=== PATIENT | female | born 1965 | race Caucasian/White ===

== ENCOUNTER 2017-05-06 23:00 | Emergency (ER) | payer MEDICAID ==
[~2017-05-06] VITALS: Ht 170.2 cm; Wt 62.0 kg
[2017-05-06] MEDS ORDERED: ZIPRASIDONE 20 MG INJ IM ONE ×2 (23:30→23:45)
[2017-05-06 23:39] LABS: HEMATOCRIT 44.1 % (34.6-47.8); WHITE BLOOD COUNT 8.9 x10^3/uL (3.4-10)
[2017-05-06 23:50] LABS: BLOOD UREA NITROGEN 10 mg/dL (7-18)
[2017-05-07 00:02] LABS: ACETAMINOPHEN < 2 mcg/mL (10-30)
[2017-05-07 06:12] VITALS: BP 112/79
== END 2017-05-07 11:00 | disposition home or self-care (01) ==
LOC: ED 23:59
DX: F41.1 Generalized anxiety disorder (principal); F10.220 Alcohol dependence with intoxication, uncomplicated; F32.9 Major depressive disorder, single episode, unspecified; G89.29 Other chronic pain
CPT/HCPCS: 36415; 80048; 80307; 80329; 82040; 85025; 96372; 99284; J3486; G0480

== ENCOUNTER 2017-12-16 17:27 | Emergency (ER) | payer MEDICAID ==
[~2017-12-16] VITALS: Ht 165.1 cm; Wt 55.0 kg
[2017-12-16 17:47] VITALS: BP 109/76
== END 2017-12-16 18:57 | disposition home or self-care (01) ==
LOC: ED 17:45
DX: F10.120 Alcohol abuse with intoxication, uncomplicated (principal); M54.9 Dorsalgia, unspecified; G89.29 Other chronic pain; F32.9 Major depressive disorder, single episode, unspecified
CPT/HCPCS: 99283

== ENCOUNTER 2018-03-03 13:49 | Emergency (ER) | payer MEDICAID ==
[~2018-03-03] VITALS: Ht 165.1 cm; Wt 53.0 kg
[2018-03-03 14:49] LABS: BASOPHILS # (AUTO) 0.04 x10^3/uL (0-0.1); BASOPHILS % (AUTO) 1 % (0-1); EOSINOPHILS # (AUTO) 0.06 x10^3/uL (0-0.4); EOSINOPHILS % (AUTO) 1 % (1-7); LYMPHOCYTES % (AUTO) 37 % (22-44); MD NO; MEAN CORPUSCULAR HEMOGLOBIN 31.2 pg (27.0-34.8); MEAN CORPUSCULAR HGB CONC 34.1 g/dL (32.4-35.8); MEAN CORPUSCULAR VOLUME 91.5 fL (80-100); MEAN PLATELET VOLUME 7.4 fL (7.4-10.4); MONOCYTES # (AUTO) 0.32 x10^3/uL (0.2-0.8); MONOCYTES % (AUTO) 4 % (2-9); NEUTROPHILS # (AUTO) 5.03 x10^3/uL (1.8-6.8); NEUTROPHILS % (AUTO) 58 % (42-75); PLATELET COUNT 293 x10^3/uL (130-400); RED BLOOD COUNT 4.99 x10^6/uL (3.82-5.3)
[2018-03-03 14:52] LABS: ALANINE AMINOTRANSFERASE 41 U/L (12-78); ALBUMIN 3.9 g/dL (3.4-5.0); ANION GAP 11 mmol/L (5-15); CALCIUM 8.6 mg/dL (8.5-10.1); CHLORIDE 104 mmol/L (98-107); CREATININE 0.58 mg/dL (0.55-1.02); SALICYLATE LEVEL 3.3 mg/dL (2.8-20.0)
[2018-03-03 14:54] LABS: ALKALINE PHOSPHATASE 91 U/L (45-117); BILIRUBIN,TOTAL 0.4 mg/dL (0.2-1.0); TOTAL PROTEIN 8.2 g/dL (6.4-8.2)
[2018-03-03 15:10] LABS: ACETAMINOPHEN < 2 mcg/mL (10-30)
[2018-03-03 21:29] LABS: AMPHETAMINE SCREEN, URINE Negative (Negative); BARBITURATE SCREEN, URINE Negative (Negative); BENZODIAZEPINE SCREEN, URINE Negative (Negative); CANNABINOID SCREEN, URINE Negative (Negative); COCAINE SCREEN, URINE Negative (Negative); METHADONE SCREEN, URINE Negative (Negative); OPIATE SCREEN, URINE Negative (Negative)
[2018-03-04 00:10] VITALS: BP 114/86
[2018-03-04] MEDS ORDERED: ONDANSETRON ODT 4 MG PO ONE (00:30)
[2018-03-04] MEDS ORDERED: LORazepam 2 MG/ML, 1ML IM ONE (00:30)
[2018-03-04] MEDS ORDERED: ONDANSETRON ODT 4 MG ONE (00:34)
[2018-03-04] MEDS ORDERED: LORazepam 2 MG/ML, 1ML ONE (00:34)
== END 2018-03-04 01:03 | disposition home or self-care (01) ==
LOC: ED 21:08
DX: F33.9 Major depressive disorder, recurrent, unspecified (principal); F10.229 Alcohol dependence with intoxication, unspecified; F41.1 Generalized anxiety disorder; F17.200 Nicotine dependence, unspecified, uncomplicated; Z90.89 Acquired absence of other organs; Z79.899 Other long term (current) drug therapy
CPT/HCPCS: 36415; 80053; 80307; 80329; 85025; 96372; 99284; J2060; Q0162; G0480

== ENCOUNTER 2018-03-08 22:36 | Inpatient (IN) | payer MEDICAID ==
[~2018-03-08] VITALS: Ht 165.1 cm; Wt 56.1 kg
[2018-03-08 23:29] LABS: BASOPHILS # (AUTO) 0.05 x10^3/uL (0-0.1); BASOPHILS % (AUTO) 1 % (0-1); EOSINOPHILS # (AUTO) 0.08 x10^3/uL (0-0.4); EOSINOPHILS % (AUTO) 1 % (1-7); LYMPHOCYTES # (AUTO) 2.73 x10^3/uL (1-3.4); LYMPHOCYTES % (AUTO) 38 % (22-44); MD NO; MEAN CORPUSCULAR HEMOGLOBIN 31.3 pg (27.0-34.8); MEAN CORPUSCULAR VOLUME 91.9 fL (80-100); MEAN PLATELET VOLUME 8.2 fL (7.4-10.4); MONOCYTES # (AUTO) 0.47 x10^3/uL (0.2-0.8); MONOCYTES % (AUTO) 7 % (2-9); NEUTROPHILS # (AUTO) 3.89 x10^3/uL (1.8-6.8); NEUTROPHILS % (AUTO) 54 % (42-75); PLATELET COUNT 109 x10^3/uL (130-400); RED BLOOD COUNT 5.01 x10^6/uL (3.82-5.3); RED CELL DISTRIBUTION WIDTH 14.1 % (9.6-15.2)
[2018-03-08] MEDS ORDERED: SODIUM CHLORIDE 0.9% 1,000ML IVBOLUS ONE (23:30)
[2018-03-08] MEDS ORDERED: THIAMINE 100MG TABLET PO ONE (23:30)
[2018-03-08] MEDS ORDERED: ONDANSETRON 2MG/ML, 2ML IVPush ONE (23:30)
[2018-03-08] MEDS ORDERED: LORazepam 2 MG/ML, 1ML IVPush PRN (23:30)
[2018-03-08 23:32] LABS: ANION GAP 11 mmol/L (5-15); CALCIUM 9.1 mg/dL (8.5-10.1); CHLORIDE 106 mmol/L (98-107); CREATININE 0.71 mg/dL (0.55-1.02)
[2018-03-08 23:33] LABS: ALANINE AMINOTRANSFERASE 43 U/L (12-78); ALBUMIN 3.9 g/dL (3.4-5.0)
[2018-03-08 23:35] LABS: ALKALINE PHOSPHATASE 95 U/L (45-117); BILIRUBIN,TOTAL 0.3 mg/dL (0.2-1.0); TOTAL PROTEIN 8.4 g/dL (6.4-8.2)
[2018-03-09] MEDS ORDERED: ONDANSETRON 2MG/ML, 2ML ONE (00:02)
[2018-03-09] MEDS ORDERED: LORazepam 2 MG/ML, 1ML ONE (00:02)
[2018-03-09] MEDS ORDERED: THIAMINE 100MG TABLET ONE (00:02)
[2018-03-09] MEDS ORDERED: ACETAMINOPHEN 325 MG TABLET PO PRN (01:00)
[2018-03-09] MEDS ORDERED: THIAMINE 100 MG, MVI ADULT 10 ML, FOLIC ACID 1 MG in D5%-0.9% NACL 1,000 ML IV SCH (01:00)
[2018-03-09] MEDS ORDERED: ONDANSETRON 2MG/ML, 2ML IVPush PRN (01:00)
[2018-03-09] MEDS ORDERED: LORazepam 1MG TABLET PO PRN (01:00)
[2018-03-09 01:30] VITALS: BP 84/55
[2018-03-09] MEDS ORDERED: SODIUM CHLORIDE 0.9% 1,000ML IVBOLUS ONE (02:00)
[2018-03-09] MEDS ORDERED: FLUMAZENIL 0.1 MG/1 ML, 5ML IVPush ONE (02:00)
[2018-03-09] MEDS: D5%-0.9% NACL 1,000 ML IV SCH ×2 (02:06→19:30)
[2018-03-09 02:40] VITALS: BP 97/70
[2018-03-09] MEDS: ENOXAPARIN 40 MG/0.4 ML SQ SCH (02:46)
[2018-03-09 05:34] LABS: ANION GAP 8 mmol/L (5-15); CALCIUM 6.8 mg/dL (8.5-10.1); CHLORIDE 114 mmol/L (98-107)
[2018-03-09 05:36] LABS: CREATININE 0.45 mg/dL (0.55-1.02)
[2018-03-09] MEDS ORDERED: POTASSIUM CHLORIDE 40 MEQ in SODIUM CHLORIDE 0.9% 500 ML IV ONE (06:30)
[2018-03-09] MEDS ORDERED: MAGNESIUM SULFATE PMX 2GM/50ML 50 ML IV ONE (06:30)
[2018-03-09 07:32] VITALS: BP 103/66
[2018-03-09] MEDS: POTASSIUM CHLORIDE 20 MEQ TAB.ER.PRT PO SCH ×2 (08:00→17:15)
[2018-03-09] MEDS ORDERED: LORazepam 0.5MG TABLET ONE (09:59)
[2018-03-09] MEDS: LORazepam 0.5MG TABLET PO PRN ×3 (10:06→19:47)
[2018-03-09 14:21] VITALS: BP 117/75
[2018-03-09] MEDS: BEER 12 OZ CAN PO SCH ×2 (17:07→17:16)
[2018-03-09 19:15] VITALS: BP 126/75
[2018-03-10] MEDS: ENOXAPARIN 40 MG/0.4 ML SQ SCH (00:57)
[2018-03-10] MEDS: LORazepam 0.5MG TABLET PO PRN ×5 (00:57→20:43)
[2018-03-10 01:40] VITALS: BP 115/73
[2018-03-10] MEDS: D5%-0.9% NACL 1,000 ML IV SCH ×2 (01:42→08:17)
[2018-03-10 05:48] LABS: ALBUMIN 2.6 g/dL (3.4-5.0); ANION GAP 6 mmol/L (5-15); CALCIUM 7.4 mg/dL (8.5-10.1); CHLORIDE 111 mmol/L (98-107); CREATININE 0.43 mg/dL (0.55-1.02)
[2018-03-10 07:10] VITALS: BP 119/86
[2018-03-10] MEDS: BEER 12 OZ CAN PO SCH (08:00)
[2018-03-10] MEDS ORDERED: THIAMINE 100 MG/ML, 2ML IM SCH (09:00)
[2018-03-10] MEDS ORDERED: POTASSIUM PHOSPHATE 22 MEQ in SODIUM CHLORIDE 0.9% 500 ML IV ONE (09:00)
[2018-03-10] MEDS ORDERED: MAGNESIUM SULFATE PMX 2GM/50ML 50 ML IV ONE (09:00)
[2018-03-10] MEDS ORDERED: POTASSIUM CHLORIDE 20 MEQ TAB.ER.PRT PO ONE (09:00)
[2018-03-10] MEDS: FOLIC ACID 1 MG TABLET PO SCH (11:36)
[2018-03-10] MEDS: MULTIVITAMIN 1 TABLET PO SCH (11:36)
[2018-03-10 12:45] VITALS: BP 126/81
[2018-03-10 20:18] VITALS: BP 117/75
[2018-03-11] MEDS: ENOXAPARIN 40 MG/0.4 ML SQ SCH (01:00)
[2018-03-11 01:05] VITALS: BP 129/81
[2018-03-11 06:05] LABS: ALBUMIN 2.8 g/dL (3.4-5.0); CALCIUM 7.8 mg/dL (8.5-10.1); CHLORIDE 109 mmol/L (98-107)
[2018-03-11 06:08] LABS: ANION GAP 10 mmol/L (5-15); CREATININE 0.43 mg/dL (0.55-1.02)
[2018-03-11 06:48] VITALS: BP 133/81
[2018-03-11] MEDS: LORazepam 0.5MG TABLET PO PRN (08:30)
[2018-03-11] MEDS: MULTIVITAMIN 1 TABLET PO SCH (08:30)
[2018-03-11] MEDS: FOLIC ACID 1 MG TABLET PO SCH (08:30)
[2018-03-11] MEDS ORDERED: FOLI-17 PO (08:49)
[2018-03-11] MEDS ORDERED: THIA100T6 PO (08:49)
[2018-03-11] MEDS ORDERED: MULT1TAB60 PO (08:49)
[2018-03-11] MEDS ORDERED: THIAMINE 100MG TABLET PO SCH (09:00)
[2018-03-11] MEDS ORDERED: POTASSIUM CHLORIDE 20 MEQ TAB.ER.PRT PO SCH (10:00)
== END 2018-03-11 11:10 | disposition home or self-care (01) | DRG 440 ==
LOC: ED 03-09 00:19 → 3NE 03-09 00:24 → SUATTDRO 03-09 00:38 → DCLOUNGE 03-11 10:55
PROVIDERS: ADMIT Hospitalist; ATTEND Hospitalist
DX: K85.20 Alcohol induced acute pancreatitis without necrosis or infection (principal); E83.42 Hypomagnesemia; E87.6 Hypokalemia; F10.220 Alcohol dependence with intoxication, uncomplicated; F17.200 Nicotine dependence, unspecified, uncomplicated; F32.9 Major depressive disorder, single episode, unspecified; F41.1 Generalized anxiety disorder; G89.29 Other chronic pain; Z90.89 Acquired absence of other organs
CPT/HCPCS: 36415; 99285; J7042; 80048; 80053; 80307; 82040; 82962; 83690; 83735; 84100; 85025; 93005; 96374; 96375; J1650; J2405; J3411; J3480; J2060; J3475; J7030; J7040

== ENCOUNTER 2018-05-20 20:43 | Emergency (ER) | payer MEDICAID ==
[~2018-05-20] VITALS: Ht 165.1 cm; Wt 55.0 kg
[~2018-05-20 20:43] MED LIST: FOLI-17 PO; MULT1TAB60 PO; THIA100T67 PO
[2018-05-20] MEDS ORDERED: LORazepam 1MG TABLET PO ONE (21:00)
[2018-05-20] MEDS ORDERED: LORazepam 1MG TABLET ONE (21:15)
[2018-05-20 21:38] VITALS: BP 120/77
== END 2018-05-20 22:24 | disposition home or self-care (01) ==
LOC: ED 21:57
DX: F10.10 Alcohol abuse, uncomplicated (principal); F41.1 Generalized anxiety disorder; F32.9 Major depressive disorder, single episode, unspecified; Z90.89 Acquired absence of other organs; G89.29 Other chronic pain
CPT/HCPCS: 99281; 99282; 99283

== ENCOUNTER 2018-11-28 16:30 | Emergency (ER) | payer MEDICAID ==
[~2018-11-28] VITALS: Ht 170.2 cm; Wt 55.0 kg
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
[2018-11-28 16:39] VITALS: BP 119/77
--- NOTE | 2018-11-28 17:11 | NUR ---
pt bib remsa for od on unknown number of valium and +etoh. pt states he pcp prescribed 20-10mg
[2018-11-28 17:17] LABS: ALBUMIN 3.8 g/dL (3.4-5.0); ANION GAP 8 mmol/L (5-15); CALCIUM 8.1 mg/dL (8.5-10.1); CHLORIDE 110 mmol/L (98-107); SALICYLATE LEVEL 3.2 mg/dL (2.8-20.0)
[2018-11-28 17:20] LABS: ALANINE AMINOTRANSFERASE 44 U/L (12-78); ALKALINE PHOSPHATASE 63 U/L (45-117); BILIRUBIN,TOTAL 0.4 mg/dL (0.2-1.0); TOTAL PROTEIN 7.3 g/dL (6.4-8.2)
--- NOTE | 2018-11-28 17:27 | NUR ---
pt bib remsa for od on unknown number of valium and +etoh. pt states he pcp prescribed 20-10mg valium
[2018-11-28 17:28] LABS: ACETAMINOPHEN < 2 mcg/mL (10-30)
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
[2018-11-28 17:30] LABS: MEAN CORPUSCULAR HEMOGLOBIN 30.4 pg (27.0-34.8); MEAN CORPUSCULAR HGB CONC 34.1 g/dL (32.4-35.8); MEAN CORPUSCULAR VOLUME 89.2 fL (80-100); MEAN PLATELET VOLUME 8.4 fL (7.4-10.4); PLATELET COUNT 89 x10^3/uL (130-400); RED BLOOD COUNT 4.27 x10^6/uL (3.82-5.3); RED CELL DISTRIBUTION WIDTH 12.7 % (9.6-15.2)
[2018-11-28 17:32] LABS: BASOPHILS # (AUTO) 0.04 x10^3/uL (0-0.1); BASOPHILS % (AUTO) 1 % (0-1); EOSINOPHILS # (AUTO) 0.08 x10^3/uL (0-0.4); EOSINOPHILS % (AUTO) 1 % (1-7); LYMPHOCYTES # (AUTO) 2.63 x10^3/uL (1-3.4); LYMPHOCYTES % (AUTO) 43 % (22-44); MD SCAN; MONOCYTES # (AUTO) 0.29 x10^3/uL (0.2-0.8); MONOCYTES % (AUTO) 5 % (2-9); NEUTROPHILS # (AUTO) 3.02 x10^3/uL (1.8-6.8); NEUTROPHILS % (AUTO) 50 % (42-75)
--- NOTE | 2018-11-28 18:01 | NUR ---
rdp present for dc
== END 2018-11-28 18:13 | disposition home or self-care (01) ==
LOC: ED 16:56
DX: F10.221 Alcohol dependence with intoxication delirium (principal); F32.9 Major depressive disorder, single episode, unspecified; G89.29 Other chronic pain; Z90.89 Acquired absence of other organs
CPT/HCPCS: 36415; 80053; 80307; 80329; 85025; 93005; 99284; G0480

== ENCOUNTER 2020-02-13 16:01 | Emergency (ER) | payer MEDICAID ==
[~2020-02-13] VITALS: Ht 165.1 cm; Wt 54.5 kg
[~2020-02-13 16:01] MED LIST changes: +MULT-449 PO; -MULT1TAB60 PO
[2020-02-13 16:12] VITALS: BP 103/67
== END 2020-02-13 16:52 | disposition home or self-care (01) ==
LOC: ED 16:45
DX: B86 Scabies (principal); F17.200 Nicotine dependence, unspecified, uncomplicated
CPT/HCPCS: 99283

== ENCOUNTER 2020-07-19 17:56 | Emergency (ER) | payer MEDICAID ==
[~2020-07-19] VITALS: Ht 165.1 cm; Wt 55.0 kg
[2020-07-19 18:09] VITALS: BP 113/81
[2020-07-19 18:52] LABS: BASOPHILS % (AUTO) 1 % (0-1); EOSINOPHILS % (AUTO) 1 % (1-7); LYMPHOCYTES % (AUTO) 40 % (22-44); MEAN CORPUSCULAR HEMOGLOBIN 33.5 pg (27.0-34.8); MEAN CORPUSCULAR HGB CONC 34.2 g/dL (32.4-35.8); MEAN PLATELET VOLUME 7.7 fL (7.4-10.4); MONOCYTES % (AUTO) 11 % (2-9); NEUTROPHILS % (AUTO) 48 % (42-75); PLATELET COUNT 92 x10^3/uL (130-400); RED BLOOD COUNT 4.35 x10^6/uL (3.82-5.3); RED CELL DISTRIBUTION WIDTH 13.6 % (9.6-15.2)
[2020-07-19 18:54] LABS: MD NO
[2020-07-19 18:57] LABS: ALANINE AMINOTRANSFERASE 94 U/L (12-78); ALBUMIN 3.6 g/dL (3.4-5.0); ANION GAP 6 mmol/L (5-15); CALCIUM 8.2 mg/dL (8.5-10.1); CHLORIDE 108 mmol/L (98-107); CREATININE 0.59 mg/dL (0.55-1.02)
[2020-07-19 19:02] LABS: ALKALINE PHOSPHATASE 94 U/L (45-117); BILIRUBIN,TOTAL 0.4 mg/dL (0.2-1.0); TOTAL PROTEIN 8.1 g/dL (6.4-8.2); TROPONIN I < 0.015 ng/mL (0.000-0.045)
--- NOTE | 2020-07-19 19:07 | NUR ---
REPORT TO SANTY RIVERO.
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
--- NOTE | 2020-07-19 20:30 | NUR ---
PT REFUSING LAB DRAW, ERP UPDATED
--- NOTE | 2020-07-19 21:09 | NUR ---
PT RESTING ON GURLUIS ENRIQUE NADN AT THIS TIME RESP EVEN AND UNLABORED
--- NOTE | 2020-07-19 23:58 | NUR ---
pt amb to restroom steady gait no assist at this time.
--- NOTE | 2020-07-19 23:59 | NUR ---
PT REQ RX FOR VALIUM AT THIS TIME, PT EDUCATED THAT SHE NEEDS TO SEE PRIMARY CARE FOR THOSE TYPES OF MEDS
--- NOTE | 2020-07-19 23:59 | NUR ---
Patient/Caregiver given discharge instructions and they have confirmed that they understand the instructions. Patient ambulatory with steady gait.
== END 2020-07-20 00:01 | disposition home or self-care (01) ==
LOC: ED 18:43
DX: F10.220 Alcohol dependence with intoxication, uncomplicated (principal); R07.89 Other chest pain; F32.9 Major depressive disorder, single episode, unspecified; G89.29 Other chronic pain; Z90.89 Acquired absence of other organs; Y90.0 Blood alcohol level of less than 20 mg/100 ml
CPT/HCPCS: 36415; 80053; 83735; 84484; 85025; 93005; 99284

== ENCOUNTER 2020-07-22 14:38 | Emergency (ER) | payer MEDICAID ==
[~2020-07-22] VITALS: Ht 165.1 cm; Wt 52.5 kg
--- NOTE | 2020-07-22 16:53 | NUR ---
PT PROVIDED WITH MEAL TRAY. PT DENIES FURTHER NEEDS AT THIS TIME
[2020-07-22 19:38] VITALS: BP 97/69
--- NOTE | 2020-07-22 19:39 | NUR ---
Patient ambulated with steady gait to and from restroom. Alert and oriented. Was given taxi voucher at discharge
== END 2020-07-22 19:46 | disposition home or self-care (01) ==
LOC: ED 18:28
DX: F10.120 Alcohol abuse with intoxication, uncomplicated (principal); F17.200 Nicotine dependence, unspecified, uncomplicated; Z72.9 Problem related to lifestyle, unspecified; Y90.0 Blood alcohol level of less than 20 mg/100 ml
CPT/HCPCS: 99283

== ENCOUNTER 2020-08-28 15:41 | Inpatient (IN) | payer MEDICAID ==
[~2020-08-28] VITALS: Ht 165.1 cm; Wt 54.8 kg
--- NOTE | 2020-08-28 15:58 | NUR ---
BIB EMS, PT +N/V FOR PAST 3 DAYS, DRINKING 1 PINT VOLDKA/DAY, LAST DRINK "ABOUT 5-8 HRS AGO" PT VERBALIZES "I WANT TO GET THROUGH THIS" PT UNDRESSED WITH RN ASSIST 2/2 ANTONINO TREMMORS AND VOMITING. ALL MONITORS IN PLACE, PIV EST AND LABS DRAWN. DR REAL AT BEDSIDE, PT ASSESSMENT, POC DISCUSSED. ORDERS REC'D. PT VSS, CALL LIGHT W/I REACH. BLANKET AND PILLOW FOR COMFORT.
[2020-08-28] MEDS ORDERED: SODIUM CHLORIDE FLUSH 10ML SYR IVF ONE (16:00)
[2020-08-28] MEDS ORDERED: SODIUM CHLORIDE 0.9% 1,000ML IVBOLUS ONE (16:00)
[2020-08-28 16:08] LABS: PH, VENOUS 7.425 pH (7.320-7.420)
[2020-08-28 16:10] LABS: O2 FLOW ROOM AIR L/min
[2020-08-28 16:13] LABS: BASOPHILS % (AUTO) 1 % (0-1); EOSINOPHILS % (AUTO) 0 % (1-7); LYMPHOCYTES % (AUTO) 33 % (22-44); MEAN CORPUSCULAR HEMOGLOBIN 34.3 pg (27.0-34.8); MEAN CORPUSCULAR HGB CONC 34.6 g/dL (32.4-35.8); MEAN PLATELET VOLUME 8.6 fL (7.4-10.4); MONOCYTES % (AUTO) 7 % (2-9); NEUTROPHILS % (AUTO) 59 % (42-75); PLATELET COUNT 115 x10^3/uL (130-400); RED BLOOD COUNT 4.23 x10^6/uL (3.82-5.3); RED CELL DISTRIBUTION WIDTH 13.8 % (9.6-15.2)
[2020-08-28 16:14] LABS: MD NO
[2020-08-28 16:20] LABS: ALANINE AMINOTRANSFERASE 184 U/L (12-78); ANION GAP 17 mmol/L (5-15); CALCIUM 9.1 mg/dL (8.5-10.1); CHLORIDE 99 mmol/L (98-107); CREATININE 1.14 mg/dL (0.55-1.02)
[2020-08-28] MEDS ORDERED: ONDANSETRON 2MG/ML, 2ML ONE (16:21)
[2020-08-28] MEDS ORDERED: LORazepam 2 MG/ML, 1ML ONE ×4 (16:21→21:37)
[2020-08-28 16:22] LABS: ALKALINE PHOSPHATASE 139 U/L (45-117); BILIRUBIN,TOTAL 1.8 mg/dL (0.2-1.0)
[2020-08-28] MEDS: LORazepam 2 MG/ML, 1ML IVPush PRN ×3 (16:22→18:09)
[2020-08-28] MEDS ORDERED: ONDANSETRON 2MG/ML, 2ML IVPush ONE (16:30)
[2020-08-28] MEDS ORDERED: MAGNESIUM SULFATE 1 GM, THIAMINE 100 MG, FOLIC ACID 1 MG in SODIUM CHLORIDE 0.9% 1,000 ML IV ONE (16:30)
[2020-08-28] MEDS ORDERED: POTASSIUM CHLORIDE 20 MEQ TAB.ER.PRT ONE (18:06)
[2020-08-28] MEDS: POTASSIUM CHLORIDE 10% 40 MEQ/30 ML UDC PO ONE ×2 (18:10→19:23)
[2020-08-28] MEDS ORDERED: ONDANSETRON 2MG/ML, 2ML IVPush PRN (18:30)
[2020-08-28] MEDS ORDERED: SODIUM CHLORIDE 0.9% 1,000 ML IV SCH (18:30)
[2020-08-28] MEDS ORDERED: LABETALOL 5MG/ML, 20ML IVPush PRN (18:30)
[2020-08-28] MEDS ORDERED: DOCUSATE 100 MG CAPSULE PO PRN (18:30)
[2020-08-28] MEDS ORDERED: POTASSIUM CHLORIDE 20 MEQ PACKET PO ONE (18:30)
[2020-08-28] MEDS ORDERED: LORazepam 2 MG/ML, 1ML IV PRN ×3 (18:30)
[2020-08-28] MEDS ORDERED: POTASSIUM CHLORIDE 20 MEQ PACKET ONE (19:13)
--- NOTE | 2020-08-28 20:20 | NUR ---
PT AMBULATED TO BR WITH CONTACT ASSIST. PT BTB ON HOSPITAL BED. FOOD TRAY PROVIDED.
--- NOTE | 2020-08-28 21:00 | NUR ---
REPORT FROM JOSEFA CHI. FIRST CONTACT WITH PT WHO IS ENJOYING DINNER. NAD NOTED. PT REPROTS 'MILD HEADACHE' AND 'SHAKING ON THE INSIDE'. CURRENT CIWA 6, PT TO BE MEDICATED PER ORDERS. BP/SPO2/ECG MONITORING IN PLACE. NSR/SINUS TACH ON MONITOR. AWAITING ADMIT
[2020-08-28] MEDS: LORazepam 2 MG/ML, 1ML IV PRN (21:44)
--- NOTE | 2020-08-29 00:14 | NUR ---
REPORT TO JOSEFA REILLY
[2020-08-29 01:05] VITALS: BP 127/78
[2020-08-29] MEDS: LORazepam 2 MG/ML, 1ML IV PRN ×4 (01:18→23:31)
[2020-08-29 06:07] LABS: BASOPHILS % (AUTO) 1 % (0-1); EOSINOPHILS % (AUTO) 1 % (1-7); LYMPHOCYTES % (AUTO) 27 % (22-44); MEAN CORPUSCULAR HEMOGLOBIN 34.7 pg (27.0-34.8); MEAN CORPUSCULAR HGB CONC 35.2 g/dL (32.4-35.8); MONOCYTES % (AUTO) 6 % (2-9); NEUTROPHILS % (AUTO) 64 % (42-75); PLATELET COUNT 60 x10^3/uL (130-400); RED BLOOD COUNT 3.27 x10^6/uL (3.82-5.3); RED CELL DISTRIBUTION WIDTH 13.7 % (9.6-15.2)
[2020-08-29 06:27] LABS: CHLORIDE 104 mmol/L (98-107)
[2020-08-29 06:34] LABS: MD NO
[2020-08-29 07:12] VITALS: BP 122/83
[2020-08-29 08:16] LABS: ALANINE AMINOTRANSFERASE 180 U/L (12-78); ALBUMIN 2.9 g/dL (3.4-5.0); ALKALINE PHOSPHATASE 110 U/L (45-117); ANION GAP 6 mmol/L (5-15); BILIRUBIN,TOTAL 2.5 mg/dL (0.2-1.0); CALCIUM 7.9 mg/dL (8.5-10.1); CREATININE 0.54 mg/dL (0.55-1.02); TOTAL PROTEIN 6.4 g/dL (6.4-8.2)
[2020-08-29] MEDS ORDERED: POTASSIUM CHLORIDE 20 MEQ, MAGNESIUM SULFATE 1 GM, THIAMINE 200 MG, FOLIC ACID 1 MG in ... IV SCH (09:00)
[2020-08-29] MEDS ORDERED: NICOTINE 14MG/24 HR PATCH.TD24 TD SCH (09:00)
[2020-08-29] MEDS ORDERED: POTASSIUM CHLORIDE 20 MEQ, MAGNESIUM SULFATE 1 GM, THIAMINE 200 MG, FOLIC ACID 1 MG, MV... IV SCH (11:30)
[2020-08-29] MEDS ORDERED: MAGNESIUM SULFATE PMX 2GM/50ML 50 ML IV ONE (11:30)
[2020-08-29] MEDS ORDERED: CHLORDIAZEPOXIDE 25 MG CAPSULE PO SCH (11:30)
[2020-08-29 12:36] VITALS: BP 125/80
[2020-08-29] MEDS: CHLORDIAZEPOXIDE 25 MG CAPSULE PO SCH ×2 (18:27→21:53)
[2020-08-29 19:56] VITALS: BP 126/78
[2020-08-30 01:08] VITALS: BP 125/84
== END 2020-08-30 02:24 | disposition left against medical advice (07) | DRG 683 ==
LOC: ED 17:51 → EDIP 18:28 → 5SO 08-29 00:33
PROVIDERS: ADMIT Family Medicine; ATTEND Hospitalist
DX: N17.9 Acute kidney failure, unspecified (principal); F10.239 Alcohol dependence with withdrawal, unspecified; K76.0 Fatty (change of) liver, not elsewhere classified; E87.6 Hypokalemia; G89.29 Other chronic pain; M54.5 Low back pain; D69.59 Other secondary thrombocytopenia; F17.210 Nicotine dependence, cigarettes, uncomplicated; E83.42 Hypomagnesemia; Y90.9 Presence of alcohol in blood, level not specified; F10.229 Alcohol dependence with intoxication, unspecified; Z53.29 Procedure and treatment not carried out because of patient's decision for other reasons; Z90.89 Acquired absence of other organs; Z79.899 Other long term (current) drug therapy
CPT/HCPCS: 36415; 76700; 80053; 80074; 80320; 82803; 83036; 83690; 83735; 84132; 85025; G0378; J2405; J3411; J3475; J3480; G0480; J2060; J7030

== ENCOUNTER 2020-09-15 17:30 | Inpatient (IN) | payer MEDICAID ==
[~2020-09-15] VITALS: Ht 165.1 cm; Wt 53.7 kg
[2020-09-15 18:13] LABS: BASOPHILS % (AUTO) 3 % (0-1); EOSINOPHILS % (AUTO) 1 % (1-7); LYMPHOCYTES % (AUTO) 44 % (22-44); MEAN CORPUSCULAR HEMOGLOBIN 34.3 pg (27.0-34.8); MEAN CORPUSCULAR HGB CONC 34.9 g/dL (32.4-35.8); MEAN PLATELET VOLUME 8.5 fL (7.4-10.4); MONOCYTES % (AUTO) 9 % (2-9); NEUTROPHILS % (AUTO) 43 % (42-75); PLATELET COUNT 59 x10^3/uL (130-400); RED BLOOD COUNT 3.92 x10^6/uL (3.82-5.3); RED CELL DISTRIBUTION WIDTH 13.6 % (9.6-15.2)
[2020-09-15] MEDS ORDERED: LORazepam 2 MG/ML, 1ML ONE ×2 (18:24→20:45)
[2020-09-15 18:25] LABS: ALBUMIN 3.4 g/dL (3.4-5.0); ANION GAP 13 mmol/L (5-15); CALCIUM 8.3 mg/dL (8.5-10.1); CHLORIDE 102 mmol/L (98-107); CREATININE 0.65 mg/dL (0.55-1.02)
[2020-09-15 18:42] LABS: MD SCAN
[2020-09-15] MEDS: LORazepam 2 MG/ML, 1ML IVPush PRN ×2 (18:56→20:49)
[2020-09-15] MEDS ORDERED: NS + 40MEQ KCL 1,000 ML IV ONE ×2 (19:39→20:45)
[2020-09-15] MEDS ORDERED: POTASSIUM CHLORIDE 20 MEQ TAB.ER.PRT PO ONE (20:00)
--- NOTE | 2020-09-15 20:41 | NUR ---
RN at bedside. Admitting provider at bedside. Provided pt sandwich, chips, milk, water.
[2020-09-15] MEDS ORDERED: POTASSIUM CHLORIDE 20 MEQ TAB.ER.PRT ONE (20:44)
--- NOTE | 2020-09-15 20:56 | NUR ---
Pt reports they do not take any medications at home.
--- NOTE | 2020-09-15 21:08 | NUR ---
Pt being transported upstairs
[2020-09-15] MEDS ORDERED: MELATONIN 5 MG TABLET PO PRN (21:30)
[2020-09-15] MEDS ORDERED: LORazepam 2 MG/ML, 1ML IV PRN ×4 (21:30)
[2020-09-15] MEDS ORDERED: ALUMINUM/MAG/SIMETHICONE 30 ML UDC PO PRN (21:30)
[2020-09-15] MEDS ORDERED: DIPHENHYDRAMINE 50 MG/ML, 1ML IV PRN (21:30)
[2020-09-15] MEDS ORDERED: LIDODERM 5% PATCH TD PRN (21:30)
[2020-09-15] MEDS ORDERED: DOCUSATE 100 MG CAPSULE PO PRN (21:30)
[2020-09-15] MEDS ORDERED: LABETALOL 5MG/ML, 20ML IV PRN (21:30)
[2020-09-15 21:32] LABS: ALBUMIN 3.5 g/dL (3.4-5.0); BILIRUBIN, DIRECT 0.5 mg/dL (0.1-0.2)
[2020-09-15 21:34] LABS: BILIRUBIN,INDIRECT 0.4 mg/dL (0.0-2.0); BILIRUBIN,TOTAL 0.9 mg/dL (0.2-1.0)
[2020-09-15 21:41] VITALS: BP 129/79
[2020-09-15] MEDS: LORazepam 2 MG/ML, 1ML IV PRN (22:40)
[2020-09-15] MEDS: POTASSIUM CHLORIDE 20 MEQ, MAGNESIUM SULFATE 1 GM, THIAMINE 200 MG, FOLIC ACID 1 MG in ... IV SCH (23:33)
[2020-09-16 00:26] LABS: CLOSTRIDIUM DIFFICILE ANTIGEN NEGATIVE; CLOSTRIDIUM DIFFICILE TOXIN NEGATIVE (Negative)
[2020-09-16 01:35] VITALS: BP 106/70
[2020-09-16] MEDS: LORazepam 2 MG/ML, 1ML IV PRN ×3 (05:12→17:32)
[2020-09-16 07:00] VITALS: BP 113/75
[2020-09-16] MEDS ORDERED: MAGNESIUM SULFATE PMX 4GM/100M 100 ML IV ONE (07:30)
[2020-09-16] MEDS: LACTOBACILLUS CHEW TABLET PO SCH ×3 (09:24→20:29)
[2020-09-16] MEDS: MULTIVITAMIN 1 TABLET PO SCH (09:24)
[2020-09-16] MEDS: FOLIC ACID 1 MG TABLET PO SCH (09:24)
[2020-09-16] MEDS: NICOTINE 14MG/24 HR PATCH.TD24 TD SCH (11:30)
[2020-09-16 11:37] LABS: BASOPHILS % (AUTO) 2 % (0-1); EOSINOPHILS % (AUTO) 0 % (1-7); LYMPHOCYTES % (AUTO) 23 % (22-44); MEAN CORPUSCULAR HEMOGLOBIN 34.5 pg (27.0-34.8); MEAN CORPUSCULAR HGB CONC 34.7 g/dL (32.4-35.8); MEAN PLATELET VOLUME 8.2 fL (7.4-10.4); MONOCYTES % (AUTO) 9 % (2-9); NEUTROPHILS % (AUTO) 66 % (42-75); RED BLOOD COUNT 3.36 x10^6/uL (3.82-5.3); RED CELL DISTRIBUTION WIDTH 13.7 % (9.6-15.2)
[2020-09-16 11:47] LABS: INTERNATIONAL NORMALIZED RATIO 1.1 (0.93-1.1); PROTHROMBIN TIME 11.7 Seconds (9.6-11.5)
[2020-09-16 11:52] LABS: CREATININE 0.56 mg/dL (0.55-1.02)
[2020-09-16 11:58] LABS: MD SCAN
[2020-09-16] MEDS ORDERED: LORazepam 1MG TABLET PO PRN ×3 (12:00)
[2020-09-16] MEDS ORDERED: LORazepam 0.5MG TABLET PO PRN (12:00)
[2020-09-16 12:01] LABS: PLATELET COUNT 41 x10^3/uL (130-400)
[2020-09-16 12:02] LABS: ANION GAP 6 mmol/L (5-15); CHLORIDE 106 mmol/L (98-107)
[2020-09-16] MEDS: LORazepam 1MG TABLET PO PRN ×2 (12:50→22:40)
[2020-09-16 12:58] VITALS: BP 144/90
[2020-09-16 20:19] VITALS: BP 122/84
[2020-09-17] MEDS: POTASSIUM CHLORIDE 20 MEQ, MAGNESIUM SULFATE 1 GM, THIAMINE 200 MG, FOLIC ACID 1 MG in ... IV SCH (01:28)
[2020-09-17 02:00] VITALS: BP 118/82
[2020-09-17 06:57] VITALS: BP 120/80
[2020-09-17] MEDS ORDERED: DIPHENHYDRAMINE 25 MG CAPSULE PO PRN (08:30)
[2020-09-17] MEDS: LACTOBACILLUS CHEW TABLET PO SCH ×3 (09:25→20:09)
[2020-09-17] MEDS: FOLIC ACID 1 MG TABLET PO SCH (09:25)
[2020-09-17] MEDS: NICOTINE 14MG/24 HR PATCH.TD24 TD SCH (09:25)
[2020-09-17] MEDS: MULTIVITAMIN 1 TABLET PO SCH (09:25)
[2020-09-17 11:54] LABS: BASOPHILS % (AUTO) 0 % (0-1); EOSINOPHILS % (AUTO) 1 % (1-7); LYMPHOCYTES % (AUTO) 23 % (22-44); MEAN CORPUSCULAR HEMOGLOBIN 34.5 pg (27.0-34.8); MEAN CORPUSCULAR HGB CONC 34.8 g/dL (32.4-35.8); MONOCYTES % (AUTO) 8 % (2-9); NEUTROPHILS % (AUTO) 68 % (42-75); RED BLOOD COUNT 3.71 x10^6/uL (3.82-5.3); RED CELL DISTRIBUTION WIDTH 13.1 % (9.6-15.2)
[2020-09-17 12:49] LABS: PLATELET COUNT 44 x10^3/uL (130-400)
[2020-09-17 12:50] LABS: MD SCAN
[2020-09-17] MEDS: LORazepam 1MG TABLET PO PRN ×3 (13:01→20:09)
[2020-09-17 13:39] VITALS: BP 119/83
[2020-09-17 19:21] VITALS: BP 120/84
[2020-09-18 03:15] VITALS: BP 110/75
[2020-09-18] MEDS: LORazepam 1MG TABLET PO PRN ×3 (05:50→20:01)
[2020-09-18 06:18] LABS: BASOPHILS % (AUTO) 1 % (0-1); EOSINOPHILS % (AUTO) 1 % (1-7); LYMPHOCYTES % (AUTO) 28 % (22-44); MEAN CORPUSCULAR HGB CONC 34.6 g/dL (32.4-35.8); MEAN PLATELET VOLUME 10.5 fL (7.4-10.4); MONOCYTES % (AUTO) 10 % (2-9); NEUTROPHILS % (AUTO) 61 % (42-75); PLATELET COUNT 54 x10^3/uL (130-400); RED BLOOD COUNT 3.84 x10^6/uL (3.82-5.3); RED CELL DISTRIBUTION WIDTH 13.5 % (9.6-15.2)
[2020-09-18 06:19] LABS: MD NO
[2020-09-18 06:27] LABS: % IRON SATURATION 32 % (20-55); IRON LEVEL 80 mcg/dL (50-170); TOTAL IRON BINDING CAPACITY 248 mcg/dL (250-450)
[2020-09-18 07:00] VITALS: BP 122/77
[2020-09-18 08:37] LABS: ALBUMIN 3.5 g/dL (3.4-5.0)
[2020-09-18 08:41] LABS: BILIRUBIN, DIRECT 0.7 mg/dL (0.1-0.2); BILIRUBIN,INDIRECT 0.9 mg/dL (0.0-2.0); BILIRUBIN,TOTAL 1.6 mg/dL (0.2-1.0)
[2020-09-18] MEDS: LACTOBACILLUS CHEW TABLET PO SCH ×3 (09:37→19:59)
[2020-09-18] MEDS: FOLIC ACID 1 MG TABLET PO SCH (09:37)
[2020-09-18] MEDS: MULTIVITAMIN 1 TABLET PO SCH (09:37)
[2020-09-18] MEDS: NICOTINE 14MG/24 HR PATCH.TD24 TD SCH (09:38)
[2020-09-18 13:57] VITALS: BP 119/82
[2020-09-18 18:48] VITALS: BP 127/88
[2020-09-19 00:36] VITALS: BP 107/74
[2020-09-19 07:02] VITALS: BP 93/60
[2020-09-19] MEDS: NICOTINE 14MG/24 HR PATCH.TD24 TD SCH (08:43)
[2020-09-19] MEDS: FOLIC ACID 1 MG TABLET PO SCH (09:40)
[2020-09-19] MEDS: LORazepam 1MG TABLET PO PRN ×2 (14:01→20:55)
[2020-09-19 14:08] VITALS: BP 117/80
[2020-09-19 19:00] VITALS: BP 100/63
[2020-09-20 01:45] VITALS: BP 105/73
[2020-09-20 05:01] LABS: BASOPHILS % (AUTO) 1 % (0-1); EOSINOPHILS % (AUTO) 1 % (1-7); LYMPHOCYTES % (AUTO) 31 % (22-44); MEAN CORPUSCULAR HEMOGLOBIN 35.2 pg (27.0-34.8); MEAN CORPUSCULAR HGB CONC 34.2 g/dL (32.4-35.8); MEAN PLATELET VOLUME 9.6 fL (7.4-10.4); MONOCYTES % (AUTO) 16 % (2-9); NEUTROPHILS % (AUTO) 52 % (42-75); PLATELET COUNT 83 x10^3/uL (130-400); RED BLOOD COUNT 3.62 x10^6/uL (3.82-5.3); RED CELL DISTRIBUTION WIDTH 13.3 % (9.6-15.2)
[2020-09-20 05:05] LABS: MD NO
[2020-09-20 05:12] LABS: ALBUMIN 3.1 g/dL (3.4-5.0); ANION GAP 7 mmol/L (5-15); CALCIUM 9.3 mg/dL (8.5-10.1); CHLORIDE 109 mmol/L (98-107); CREATININE 0.55 mg/dL (0.55-1.02)
[2020-09-20 05:14] LABS: ALANINE AMINOTRANSFERASE 73 U/L (12-78); ALKALINE PHOSPHATASE 121 U/L (45-117); BILIRUBIN,TOTAL 0.8 mg/dL (0.2-1.0); TOTAL PROTEIN 7.4 g/dL (6.4-8.2)
[2020-09-20 06:54] VITALS: BP 101/69
[2020-09-20] MEDS: FOLIC ACID 1 MG TABLET PO SCH (07:55)
[2020-09-20] MEDS: NICOTINE 14MG/24 HR PATCH.TD24 TD SCH (07:55)
[2020-09-20 13:16] VITALS: BP 104/72
== END 2020-09-20 13:57 | disposition home or self-care (01) | DRG 433 ==
LOC: ED 19:35 → EDIP 19:41 → ED 19:53 → 4WST 21:08
PROVIDERS: ADMIT Family Medicine; ATTEND Family Medicine
DX: K70.10 Alcoholic hepatitis without ascites (principal); F10.239 Alcohol dependence with withdrawal, unspecified; D69.6 Thrombocytopenia, unspecified; E83.42 Hypomagnesemia; E87.6 Hypokalemia; F10.229 Alcohol dependence with intoxication, unspecified; F17.210 Nicotine dependence, cigarettes, uncomplicated; K74.60 Unspecified cirrhosis of liver; Z80.1 Family history of malignant neoplasm of trachea, bronchus and lung; Z82.5 Family history of asthma and other chronic lower respiratory diseases; Z81.1 Family history of alcohol abuse and dependence
CPT/HCPCS: 36415; 80048; 80053; 80076; 80320; 82040; 83540; 83550; 83690; 83735; 84100; 84443; 85025; 85610; 87324; 96374; 99285; G0378; J3411; J3475; J3480; G0480; J1200; J2060

== ENCOUNTER 2020-11-04 16:14 | Inpatient (IN) | payer MEDICAID ==
[~2020-11-04] VITALS: Ht 165.1 cm; Wt 64.6 kg
[~2020-11-04 16:14] MED LIST changes: -FOLI-17 PO; +FOLI1TAB32 PO
[2020-11-04] MEDS ORDERED: SODIUM CHLORIDE FLUSH 10ML SYR IVF ONE (16:30)
[2020-11-04] MEDS ORDERED: SODIUM CHLORIDE 0.9% 1,000ML IVBOLUS ONE (16:30)
[2020-11-04 16:49] LABS: BASOPHILS % (AUTO) 1 % (0-1); EOSINOPHILS % (AUTO) 1 % (1-7); LYMPHOCYTES % (AUTO) 41 % (22-44); MEAN CORPUSCULAR HEMOGLOBIN 33.8 pg (27.0-34.8); MEAN CORPUSCULAR HGB CONC 34.3 g/dL (32.4-35.8); MEAN PLATELET VOLUME 7.8 fL (7.4-10.4); MONOCYTES % (AUTO) 4 % (2-9); NEUTROPHILS % (AUTO) 53 % (42-75); PLATELET COUNT 263 x10^3/uL (130-400); RED BLOOD COUNT 4.25 x10^6/uL (3.82-5.3); RED CELL DISTRIBUTION WIDTH 12.5 % (9.6-15.2)
[2020-11-04 16:51] LABS: MD NO
[2020-11-04 17:00] LABS: ALANINE AMINOTRANSFERASE 39 U/L (12-78); ALBUMIN 3.9 g/dL (3.4-5.0); ANION GAP 11 mmol/L (5-15); CALCIUM 8.8 mg/dL (8.5-10.1); CHLORIDE 109 mmol/L (98-107)
[2020-11-04 17:02] LABS: ALKALINE PHOSPHATASE 71 U/L (45-117); BILIRUBIN,TOTAL 0.2 mg/dL (0.2-1.0); TOTAL PROTEIN 8.6 g/dL (6.4-8.2)
[2020-11-04 17:31] LABS: SALICYLATE LEVEL 2.7 mg/dL (2.8-20.0)
[2020-11-04] MEDS ORDERED: SODIUM CHLORIDE FLUSH 10ML SYR IVF PRN (19:00)
[2020-11-04] MEDS ORDERED: SODIUM CHLORIDE 0.9% 1,000 ML IV ONE (19:00)
[2020-11-04] MEDS ORDERED: ALUMINUM/MAG/SIMETHICONE 30 ML UDC PO PRN (20:00)
[2020-11-04] MEDS ORDERED: LABETALOL 5MG/ML, 20ML IV PRN (20:00)
[2020-11-04] MEDS ORDERED: LORazepam 2 MG/ML, 1ML IV PRN ×4 (20:00)
[2020-11-04] MEDS ORDERED: BISACODYL 10 MG SUPP PR PRN (20:00)
[2020-11-04] MEDS ORDERED: PROMETHAZINE 25 MG/ML, 1ML IM PRN (20:00)
[2020-11-04 20:26] LABS: MICROSCOPIC NOT IND
[2020-11-04 20:38] LABS: AMPHETAMINE SCREEN, URINE Negative (Negative); BARBITURATE SCREEN, URINE Negative (Negative); BENZODIAZEPINE SCREEN, URINE Negative (Negative); CANNABINOID SCREEN, URINE Negative (Negative); COCAINE SCREEN, URINE Negative (Negative); METHADONE SCREEN, URINE Negative (Negative); OPIATE SCREEN, URINE Negative (Negative)
[2020-11-04 20:55] VITALS: BP 119/75
[2020-11-04] MEDS: CHLORDIAZEPOXIDE 25 MG CAPSULE PO SCH (21:53)
[2020-11-04] MEDS: POTASSIUM CHLORIDE 20 MEQ, MAGNESIUM SULFATE 1 GM, THIAMINE 200 MG, FOLIC ACID 1 MG in ... IV SCH (21:53)
[2020-11-04] MEDS: ENOXAPARIN 40 MG/0.4 ML SQ SCH (21:54)
[2020-11-05 01:39] VITALS: BP 104/64
[2020-11-05] MEDS: CHLORDIAZEPOXIDE 25 MG CAPSULE PO SCH ×4 (02:38→21:48)
[2020-11-05 06:03] LABS: BASOPHILS % (AUTO) 1 % (0-1); EOSINOPHILS % (AUTO) 1 % (1-7); LYMPHOCYTES % (AUTO) 34 % (22-44); MEAN CORPUSCULAR HEMOGLOBIN 33.8 pg (27.0-34.8); MEAN PLATELET VOLUME 8.3 fL (7.4-10.4); MONOCYTES % (AUTO) 8 % (2-9); NEUTROPHILS % (AUTO) 57 % (42-75); PLATELET COUNT 202 x10^3/uL (130-400); RED BLOOD COUNT 3.49 x10^6/uL (3.82-5.3); RED CELL DISTRIBUTION WIDTH 12.4 % (9.6-15.2)
[2020-11-05 06:14] LABS: CHLORIDE 112 mmol/L (98-107)
[2020-11-05 06:20] LABS: ALANINE AMINOTRANSFERASE 31 U/L (12-78); ALKALINE PHOSPHATASE 59 U/L (45-117); ANION GAP 9 mmol/L (5-15); BILIRUBIN,TOTAL 0.3 mg/dL (0.2-1.0); CALCIUM 8.4 mg/dL (8.5-10.1); CREATININE 0.52 mg/dL (0.55-1.02); TOTAL PROTEIN 6.7 g/dL (6.4-8.2)
[2020-11-05 06:24] LABS: MD NO
[2020-11-05 06:25] VITALS: BP 114/72
[2020-11-05] MEDS: LORazepam 2 MG/ML, 1ML IV PRN (11:53)
[2020-11-05 13:18] VITALS: BP 117/73
[2020-11-05 19:25] VITALS: BP 116/74
[2020-11-05] MEDS: POTASSIUM CHLORIDE 20 MEQ, MAGNESIUM SULFATE 1 GM, THIAMINE 200 MG, FOLIC ACID 1 MG in ... IV SCH (21:48)
[2020-11-05] MEDS: ENOXAPARIN 40 MG/0.4 ML SQ SCH (21:48)
[2020-11-06 00:37] VITALS: BP 117/77
[2020-11-06] MEDS: CHLORDIAZEPOXIDE 25 MG CAPSULE PO SCH ×4 (02:42→20:48)
[2020-11-06 06:46] VITALS: BP 115/74
[2020-11-06 12:08] VITALS: BP 111/74
[2020-11-06 12:34] LABS: BASOPHILS % (AUTO) 1 % (0-1); EOSINOPHILS % (AUTO) 2 % (1-7); LYMPHOCYTES % (AUTO) 32 % (22-44); MEAN CORPUSCULAR HEMOGLOBIN 33.6 pg (27.0-34.8); MEAN CORPUSCULAR HGB CONC 33.9 g/dL (32.4-35.8); MEAN PLATELET VOLUME 7.7 fL (7.4-10.4); MONOCYTES % (AUTO) 10 % (2-9); NEUTROPHILS % (AUTO) 55 % (42-75); PLATELET COUNT 179 x10^3/uL (130-400); RED BLOOD COUNT 3.93 x10^6/uL (3.82-5.3); RED CELL DISTRIBUTION WIDTH 12.1 % (9.6-15.2)
[2020-11-06 12:35] LABS: MD NO
[2020-11-06 12:46] LABS: CALCIUM 8.9 mg/dL (8.5-10.1); CHLORIDE 111 mmol/L (98-107)
[2020-11-06 13:12] LABS: ALANINE AMINOTRANSFERASE 27 U/L (12-78); ALBUMIN 3.2 g/dL (3.4-5.0); ALKALINE PHOSPHATASE 67 U/L (45-117); ANION GAP 4 mmol/L (5-15); BILIRUBIN,TOTAL 0.8 mg/dL (0.2-1.0); CREATININE 0.56 mg/dL (0.55-1.02); TOTAL PROTEIN 7.5 g/dL (6.4-8.2)
[2020-11-06] MEDS ORDERED: MAGNESIUM SULFATE PMX 2GM/50ML 50 ML IV ONE (16:30)
[2020-11-06 19:28] VITALS: BP 121/75
[2020-11-06] MEDS: ENOXAPARIN 40 MG/0.4 ML SQ SCH (20:48)
[2020-11-06] MEDS: POTASSIUM CHLORIDE 20 MEQ, MAGNESIUM SULFATE 1 GM, THIAMINE 200 MG, FOLIC ACID 1 MG in ... IV SCH (21:26)
[2020-11-07 02:06] VITALS: BP 108/61
[2020-11-07] MEDS: CHLORDIAZEPOXIDE 25 MG CAPSULE PO SCH ×3 (02:28→14:20)
[2020-11-07] MEDS: LORazepam 2 MG/ML, 1ML IV PRN (05:34)
[2020-11-07 05:39] LABS: BASOPHILS % (AUTO) 1 % (0-1); EOSINOPHILS % (AUTO) 3 % (1-7); LYMPHOCYTES % (AUTO) 37 % (22-44); MD NO; MEAN CORPUSCULAR HEMOGLOBIN 33.3 pg (27.0-34.8); MEAN CORPUSCULAR HGB CONC 33.8 g/dL (32.4-35.8); MEAN PLATELET VOLUME 8.5 fL (7.4-10.4); MONOCYTES % (AUTO) 10 % (2-9); NEUTROPHILS % (AUTO) 49 % (42-75); PLATELET COUNT 164 x10^3/uL (130-400); RED BLOOD COUNT 3.88 x10^6/uL (3.82-5.3); RED CELL DISTRIBUTION WIDTH 12.1 % (9.6-15.2)
[2020-11-07 05:59] LABS: CHLORIDE 113 mmol/L (98-107)
[2020-11-07 06:30] LABS: ALANINE AMINOTRANSFERASE 23 U/L (12-78); ALKALINE PHOSPHATASE 59 U/L (45-117); ANION GAP 6 mmol/L (5-15); BILIRUBIN,TOTAL 0.7 mg/dL (0.2-1.0); CALCIUM 8.5 mg/dL (8.5-10.1); TOTAL PROTEIN 6.9 g/dL (6.4-8.2)
[2020-11-07 06:59] VITALS: BP 100/64
[2020-11-07 12:30] VITALS: BP 114/77
[2020-11-07] MEDS ORDERED: ATOR20TA37 PO (14:24)
== END 2020-11-07 16:10 | disposition home or self-care (01) | DRG 897 ==
LOC: ED 16:22 → EDIP 19:40 → 4WST 20:48
PROVIDERS: ADMIT Internal Medicine; ATTEND Hospitalist
DX: F10.221 Alcohol dependence with intoxication delirium (principal); F33.2 Major depressive disorder, recurrent severe without psychotic features; R45.851 Suicidal ideations; G89.29 Other chronic pain; F10.239 Alcohol dependence with withdrawal, unspecified; F17.210 Nicotine dependence, cigarettes, uncomplicated; K74.60 Unspecified cirrhosis of liver; Y90.8 Blood alcohol level of 240 mg/100 ml or more; Z56.0 Unemployment, unspecified; Z80.1 Family history of malignant neoplasm of trachea, bronchus and lung; Z82.5 Family history of asthma and other chronic lower respiratory diseases
CPT/HCPCS: 36415; 80053; 80299; 80307; 80320; 80329; 81003; 83690; 83735; 84100; 84443; 85025; 96360; 96361; 99285; G0378; J1650; J3411; J3475; J3480; G0480; J2060; J7030

== ENCOUNTER 2020-11-14 15:46 | Emergency (ER) | payer MEDICAID ==
[~2020-11-14] VITALS: Ht 165.1 cm; Wt 54.0 kg
[~2020-11-14 15:46] MED LIST changes: +ATOR20TA37 PO
[2020-11-14 15:56] VITALS: BP 131/86
--- NOTE | 2020-11-14 15:59 | NUR ---
honey TONY from [facility]. per EMS pt was checking in for detox and fell. did not hit head. pt does not remember the fall, she appears intoxicated. EMS states she usually drinks 1 pint of vodka a day. vss.
--- NOTE | 2020-11-14 17:41 | NUR ---
pt resting in bed with monitor attached. pt vss. pt denied any current wants or needs at this time.
== END 2020-11-14 18:14 | disposition home or self-care (01) ==
LOC: ED 17:30
DX: F10.220 Alcohol dependence with intoxication, uncomplicated (principal); Y90.0 Blood alcohol level of less than 20 mg/100 ml
CPT/HCPCS: 99283

== ENCOUNTER 2020-11-15 16:13 | Emergency (ER) | payer MEDICAID ==
[~2020-11-15] VITALS: Ht 165.1 cm; Wt 53.0 kg
--- NOTE | 2020-11-15 18:09 | NUR ---
Late entry summary note: Pt coming from home where she lives with a roommate, but states her sister called 911 for her inablity to walk secondary to ETOH. Pt presents awake, oriented x4, asking for food. MD Durham to bedside for eval. Pt was seen here yesterday for same. Pt connected to all monitors. Sleeping intermittently and then yelling for blankets and food.
--- NOTE | 2020-11-15 19:23 | NUR ---
Woke pt up she is alert and oriented, with steady gait. Provided snacks and juice/water. To be dc.
[2020-11-15 19:41] VITALS: BP 135/74
--- NOTE | 2020-11-15 19:41 | NUR ---
Pt given snack, water, steady gait dc ambulatory to phone where pt is calling for a ride. VSS. Able to navigate the community safely.
== END 2020-11-15 19:51 | disposition home or self-care (01) ==
LOC: ED 19:03
DX: S60.051A Contusion of right little finger without damage to nail, initial encounter (principal); E11.9 Type 2 diabetes mellitus without complications; R41.82 Altered mental status, unspecified; Z90.89 Acquired absence of other organs; F10.220 Alcohol dependence with intoxication, uncomplicated; X58.XXXA Exposure to other specified factors, initial encounter; Y93.89 Activity, other specified; Y92.89 Other specified places as the place of occurrence of the external cause; Y99.8 Other external cause status; Y90.0 Blood alcohol level of less than 20 mg/100 ml
CPT/HCPCS: 99283

== ENCOUNTER 2021-02-23 10:24 | Emergency (ER) | payer MEDICAID ==
[~2021-02-23] VITALS: Ht 165.1 cm; Wt 57.0 kg
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
--- NOTE | 2021-02-23 10:54 | NUR ---
PA AT BS
[2021-02-23] MEDS ORDERED: ONDANSETRON 2MG/ML, 2ML ONE (10:55)
[2021-02-23] MEDS ORDERED: FAMOTIDINE 20 MG/2 ML ONE (10:56)
[2021-02-23] MEDS ORDERED: SODIUM CHLORIDE 0.9% 1,000ML IVBOLUS ONE (11:00)
[2021-02-23] MEDS ORDERED: ONDANSETRON 2MG/ML, 2ML IVPush ONE (11:00)
[2021-02-23] MEDS ORDERED: FAMOTIDINE 20 MG/2 ML IVPush ONE (11:00)
[2021-02-23] MEDS ORDERED: SODIUM CHLORIDE FLUSH 10ML SYR IVF ONE (11:00)
[2021-02-23 11:01] VITALS: BP 128/83
[2021-02-23 11:19] LABS: BASOPHILS % (AUTO) 1 % (0-1); EOSINOPHILS % (AUTO) 0 % (1-7); LYMPHOCYTES % (AUTO) 7 % (22-44); MEAN CORPUSCULAR HEMOGLOBIN 30.8 pg (27.0-34.8); MEAN CORPUSCULAR HGB CONC 34.2 g/dL (32.4-35.8); MEAN PLATELET VOLUME 8.1 fL (7.4-10.4); MONOCYTES % (AUTO) 3 % (2-9); NEUTROPHILS % (AUTO) 90 % (42-75); PLATELET COUNT 260 x10^3/uL (130-400); RED CELL DISTRIBUTION WIDTH 12.6 % (9.6-15.2)
[2021-02-23 11:21] LABS: ALANINE AMINOTRANSFERASE 22 U/L (12-78); ALBUMIN 4.2 g/dL (3.4-5.0); ANION GAP 17 mmol/L (5-15); CALCIUM 9.7 mg/dL (8.5-10.1); CHLORIDE 106 mmol/L (98-107); CREATININE 0.72 mg/dL (0.55-1.02)
[2021-02-23 11:25] LABS: ALKALINE PHOSPHATASE 89 U/L (45-117); BILIRUBIN,TOTAL 0.8 mg/dL (0.2-1.0); TOTAL PROTEIN 8.6 g/dL (6.4-8.2); TROPONIN I < 0.015 ng/mL (0.000-0.045)
--- NOTE | 2021-02-23 11:47 | NUR ---
PO FLUIDS GIVEN- PT TOLERATED WITHOUT NV, PA AWARE.
[2021-02-23] MEDS ORDERED: PROCHLORPERAZINE 5 MG/ML, 2ML ONE (12:04)
--- NOTE | 2021-02-23 12:19 | NUR ---
Patient given discharge instructions and Rx, they have confirmed that they understand the instructions. Patient ambulatory with steady gait. NAD, all questions answered appropriately, denies additional needs at this time. No personal belongings left in room after discharge.
[2021-02-23] MEDS ORDERED: PROCHLORPERAZINE 5 MG/ML, 2ML IVPush ONE (12:30)
== END 2021-02-23 12:21 | disposition home or self-care (01) ==
LOC: ED 12:15
DX: R11.2 Nausea with vomiting, unspecified (principal); R10.10 Upper abdominal pain, unspecified; F10.220 Alcohol dependence with intoxication, uncomplicated; I10 Essential (primary) hypertension; E11.9 Type 2 diabetes mellitus without complications; Y90.0 Blood alcohol level of less than 20 mg/100 ml
CPT/HCPCS: 36415; 80053; 80320; 83690; 84484; 85025; 93005; 96361; 96374; 96375; 99284; J0780; J2405; J7030; G0480

== ENCOUNTER 2021-03-05 06:24 | Emergency (ER) | payer MEDICAID ==
[~2021-03-05] VITALS: Ht 165.1 cm; Wt 55.2 kg
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
--- NOTE | 2021-03-05 07:07 | NUR ---
REPORT FROM DELILAH RIVERO. PT RETURNED TO ROOM FROM BR W/O INCIDENT. UNABLE TO PROVIDE URINE SAMPLE. PT CHANGED INTO GOWN, BELONGINGS TO SAFE KEEPING BY DELILAH RVIERO. GARAGE DOORS DOWN AND SITTER OUTSIDE ROOM FOR SAFETY. LAB AT BEDSIDE.
[2021-03-05 07:20] LABS: BASOPHILS % (AUTO) 1 % (0-1); EOSINOPHILS % (AUTO) 2 % (1-7); LYMPHOCYTES % (AUTO) 40 % (22-44); MEAN CORPUSCULAR HEMOGLOBIN 31.1 pg (27.0-34.8); MEAN CORPUSCULAR HGB CONC 34.3 g/dL (32.4-35.8); MEAN PLATELET VOLUME 7.2 fL (7.4-10.4); MONOCYTES % (AUTO) 7 % (2-9); NEUTROPHILS % (AUTO) 51 % (42-75); PLATELET COUNT 147 x10^3/uL (130-400); RED BLOOD COUNT 5.18 x10^6/uL (3.82-5.3); RED CELL DISTRIBUTION WIDTH 13.6 % (9.6-15.2)
--- NOTE | 2021-03-05 07:20 | NUR ---
THIS RN WITNESSED PLACEMENT OF 2 RINGS INTO FRONT POCKET OF BLACK PURSE. PT DECLINING TO SEND RINGS W/ SECURITY AT THIS TIME.
[2021-03-05 07:31] LABS: ALANINE AMINOTRANSFERASE 35 U/L (12-78); ALBUMIN 4.4 g/dL (3.4-5.0); ANION GAP 7 mmol/L (5-15); CALCIUM 9.1 mg/dL (8.5-10.1); CHLORIDE 106 mmol/L (98-107); CREATININE 0.64 mg/dL (0.55-1.02); SALICYLATE LEVEL 3.1 mg/dL (2.8-20.0)
[2021-03-05 07:33] LABS: ALKALINE PHOSPHATASE 98 U/L (45-117); BILIRUBIN,TOTAL 0.4 mg/dL (0.2-1.0); TOTAL PROTEIN 9.7 g/dL (6.4-8.2)
--- NOTE | 2021-03-05 08:06 | NUR ---
Note nirmal in EDM - 03/05/21 at 0807 by DENIA PT UP TO BR W/ STEADY GAIT. PT TRANSFERED TO HOSPITAL BED W/O INCIDENT. PT DENIES SI. VSS, NADN. GARAGE DOORS DOWNX2 AND SITTER OUTSIDE ROOM FOR SAFETY.
--- NOTE | 2021-03-05 08:53 | NUR ---
PT DECLINING TO ATTEMPT URINE SAMPLE AT THIS TIME. RESTING ON GURNEY W/ SITTER OUTSIDE ROOM FOR SAFETY. RESP EVEN AND UNLABORED, MIGUEN.
--- NOTE | 2021-03-05 10:22 | NUR ---
PT SLEEPING ON GURNEY W/ GARAGE DOORS DOWN AND SITTER OUTSIDE ROOM FOR SAFETY. RESP EVEN AND UNLABORED, ABHILASH.
--- NOTE | 2021-03-05 12:25 | NUR ---
PT SLEEPING ON GURNEY W/ GARAGE DOORS DOWN AND SITTER OUTSIDE ROOM FOR SAFETY. RESP EVEN AND UNLABORED, ABHILASH.
--- NOTE | 2021-03-05 13:20 | NUR ---
REPORT TO ANNABEL RIVERO. PT SLEEPING ON HOSPITAL BED RESP EVEN AND UNLABORED, ABHILASH.
--- NOTE | 2021-03-05 15:13 | NUR ---
Pt provided with lunch.
--- NOTE | 2021-03-05 15:33 | NUR ---
Pt sitting up, eating lunch.
[2021-03-05] MEDS ORDERED: LORazepam 1MG TABLET PO ONE ×2 (17:00→21:30)
[2021-03-05] MEDS ORDERED: LORazepam 1MG TABLET ONE ×2 (17:09→21:24)
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
[2021-03-05 19:05] LABS: AMPHETAMINE SCREEN, URINE Negative (Negative); BARBITURATE SCREEN, URINE Negative (Negative); BENZODIAZEPINE SCREEN, URINE Negative (Negative); CANNABINOID SCREEN, URINE Negative (Negative); COCAINE SCREEN, URINE Negative (Negative)
[2021-03-05 19:08] LABS: METHADONE SCREEN, URINE Negative (Negative); OPIATE SCREEN, URINE Negative (Negative)
--- NOTE | 2021-03-05 19:37 | NUR ---
pt given meal tray, resting in rmoody, denies any other needs, in line of sight of sitter
[2021-03-05 21:36] VITALS: BP 130/83
--- NOTE | 2021-03-05 21:38 | NUR ---
PT SWABBED, VSS, NO OTHER NEEDS AT THIS TIME
--- NOTE | 2021-03-05 22:24 | NUR ---
REPORT GIVEN TO JOSEFA BESS
--- NOTE | 2021-03-05 22:39 | NUR ---
PT PLACED ON A LEGAL HOLD AT THIS TIME, TO BE TRANSFERRED TO [facility]. JOSEFA BESS WAS UPDATED
[2021-03-06] MEDS ORDERED: QUET200T4 PO (10:36)
[2021-03-06] MEDS ORDERED: ESCI10TA10 PO (10:36)
[2021-03-06] MEDS ORDERED: GABA600T7 PO (10:39)
[2021-03-06] MEDS ORDERED: BUSP10TA PO (10:39)
== END 2021-03-05 22:56 ==
LOC: ED 08:38 → ORIP 12:36 → UNDOADMIN 12:36 → ORIP 18:00
DX: R45.851 Suicidal ideations (principal); Z20.822 Contact with and (suspected) exposure to COVID-19; G92 Toxic encephalopathy; F39 Unspecified mood [affective] disorder; F10.129 Alcohol abuse with intoxication, unspecified; Y90.0 Blood alcohol level of less than 20 mg/100 ml; I10 Essential (primary) hypertension; E11.9 Type 2 diabetes mellitus without complications; Z90.89 Acquired absence of other organs
CPT/HCPCS: 36415; 80053; 80299; 80307; 80320; 80329; 85025; 87426; 99285; G0480

== ENCOUNTER 2021-03-05 21:48 | Inpatient (IN) | payer MEDICAID ==
[~2021-03-05] VITALS: Ht 165.1 cm; Wt 57.1 kg
[2021-03-05] MEDS ORDERED: POLYETHYLENE GLYCOL 17 GM PACKET PO PRN (22:30)
[2021-03-05] MEDS ORDERED: ACETAMINOPHEN 325 MG TABLET PO PRN (22:30)
[2021-03-05] MEDS ORDERED: DOCUSATE 100 MG CAPSULE PO PRN (22:30)
[2021-03-05] MEDS ORDERED: BISACODYL 10 MG SUPP PR PRN (22:30)
[2021-03-05] MEDS ORDERED: ONDANSETRON ODT 4 MG PO PRN (22:30)
[2021-03-05] MEDS ORDERED: PLEASE ENTER HEIGHT AND WEIGHT MC SCH (23:30)
[2021-03-06 00:02] LABS: MICROSCOPIC INDICATED
[2021-03-06 01:51] VITALS: BP 138/81
[2021-03-06 06:11] LABS: CHOL/HDL RATIO 1.5
[2021-03-06 06:12] LABS: FREE T4 (FREE THYROXINE) 0.81 ng/dL (0.76-1.46); LDL/HDL RATIO 0.4 (0.5-3.0)
[2021-03-06 07:04] VITALS: BP 125/63
[2021-03-06] MEDS: LORazepam 1MG TABLET PO PRN ×3 (10:24→19:39)
[2021-03-06] MEDS ORDERED: ESCI10TA10 PO (10:36)
[2021-03-06] MEDS ORDERED: QUET200T4 PO (10:36)
[2021-03-06] MEDS ORDERED: BUSP10TA PO (10:39)
[2021-03-06] MEDS ORDERED: GABA600T7 PO (10:39)
[2021-03-06] MEDS: FOLIC ACID 1 MG TABLET PO SCH (14:12)
[2021-03-06] MEDS: SERTRALINE 50MG TABLET PO SCH (14:13)
[2021-03-06] MEDS: ACAMPROSATE 333 MG TABLET.DR PO SCH ×3 (14:13→20:07)
[2021-03-06] MEDS: THIAMINE 100MG TABLET PO SCH (14:13)
[2021-03-06 19:07] VITALS: BP 119/76
[2021-03-07 07:33] VITALS: BP 92/60
[2021-03-07] MEDS: ACAMPROSATE 333 MG TABLET.DR PO SCH ×3 (09:09→20:02)
[2021-03-07] MEDS: THIAMINE 100MG TABLET PO SCH (09:09)
[2021-03-07] MEDS: FOLIC ACID 1 MG TABLET PO SCH (09:09)
[2021-03-07] MEDS: SERTRALINE 50MG TABLET PO SCH (09:10)
[2021-03-07] MEDS: LORazepam 1MG TABLET PO PRN ×2 (14:33→20:02)
[2021-03-07 19:12] VITALS: BP 116/74
[2021-03-08 07:37] VITALS: BP 94/67
[2021-03-08] MEDS: ACAMPROSATE 333 MG TABLET.DR PO SCH ×3 (09:41→20:45)
[2021-03-08] MEDS: SERTRALINE 50MG TABLET PO SCH (09:41)
[2021-03-08] MEDS: THIAMINE 100MG TABLET PO SCH (09:42)
[2021-03-08] MEDS: LORazepam 1MG TABLET PO PRN ×2 (09:42→20:45)
[2021-03-08] MEDS: FOLIC ACID 1 MG TABLET PO SCH (09:42)
[2021-03-08 18:45] VITALS: BP 105/70
[2021-03-09 06:44] VITALS: BP 113/74
[2021-03-09] MEDS: SERTRALINE 50MG TABLET PO SCH (08:37)
[2021-03-09] MEDS: ACAMPROSATE 333 MG TABLET.DR PO SCH ×3 (08:37→20:48)
[2021-03-09] MEDS: THIAMINE 100MG TABLET PO SCH (08:37)
[2021-03-09] MEDS: FOLIC ACID 1 MG TABLET PO SCH (08:37)
[2021-03-09] MEDS: LORazepam 1MG TABLET PO PRN ×3 (11:36→21:04)
[2021-03-09 19:28] VITALS: BP 100/60
[2021-03-10 07:49] VITALS: BP 98/65
[2021-03-10] MEDS: THIAMINE 100MG TABLET PO SCH (08:18)
[2021-03-10] MEDS: FOLIC ACID 1 MG TABLET PO SCH (08:18)
[2021-03-10] MEDS: ACAMPROSATE 333 MG TABLET.DR PO SCH ×3 (08:18→20:50)
[2021-03-10] MEDS: SERTRALINE 50MG TABLET PO SCH (08:18)
[2021-03-10] MEDS: LORazepam 1MG TABLET PO PRN ×3 (11:06→20:50)
[2021-03-10 19:23] VITALS: BP 110/61
[2021-03-11 07:36] VITALS: BP 98/57
[2021-03-11] MEDS: ACAMPROSATE 333 MG TABLET.DR PO SCH ×3 (09:07→20:19)
[2021-03-11] MEDS: SERTRALINE 50MG TABLET PO SCH (09:07)
[2021-03-11] MEDS: THIAMINE 100MG TABLET PO SCH (09:07)
[2021-03-11] MEDS: FOLIC ACID 1 MG TABLET PO SCH (09:07)
[2021-03-11] MEDS: LORazepam 1MG TABLET PO PRN ×3 (09:15→20:19)
[2021-03-11] MEDS ORDERED: ACAM333T7 PO (16:34)
[2021-03-11] MEDS ORDERED: SERT50TA28 PO (16:34)
[2021-03-11 18:08] VITALS: BP 111/73
[2021-03-12 07:01] VITALS: BP 97/60
[2021-03-12] MEDS: SERTRALINE 50MG TABLET PO SCH (08:29)
[2021-03-12] MEDS: ACAMPROSATE 333 MG TABLET.DR PO SCH (08:29)
[2021-03-12] MEDS: FOLIC ACID 1 MG TABLET PO SCH (08:29)
[2021-03-12] MEDS: THIAMINE 100MG TABLET PO SCH (08:29)
[2021-03-12] MEDS: LORazepam 1MG TABLET PO PRN (08:33)
== END 2021-03-12 11:30 | disposition home or self-care (01) | DRG 885 ==
LOC: 3E 22:55
PROVIDERS: ADMIT Psychiatry & Neurology Psychosomatic Medicine; ATTEND Psychiatry & Neurology Psychosomatic Medicine
DX: F33.2 Major depressive disorder, recurrent severe without psychotic features (principal); R45.851 Suicidal ideations; F10.20 Alcohol dependence, uncomplicated; F17.210 Nicotine dependence, cigarettes, uncomplicated; Y90.0 Blood alcohol level of less than 20 mg/100 ml
CPT/HCPCS: 36415; 71045; 80061; 81001; 82140; 82607; 84439; 84443; 87077; 87086; 93005

== ENCOUNTER 2021-04-05 21:24 | Observation (INO) | payer MEDICAID ==
[~2021-04-05] VITALS: Ht 165.1 cm; Wt 57.0 kg
[~2021-04-05 21:24] MED LIST changes: +ACAM333T7 PO; +BUSP10TA PO; +ESCI10TA10 PO; +GABA600T7 PO; +QUET200T4 PO; +SERT50TA28 PO
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
[2021-04-05] MEDS ORDERED: THIAMINE 100MG TABLET PO ONE (22:00)
[2021-04-05 22:02] LABS: BASOPHILS % (AUTO) 1 % (0-1); EOSINOPHILS % (AUTO) 3 % (1-7); LYMPHOCYTES % (AUTO) 34 % (22-44); MEAN CORPUSCULAR HGB CONC 34.4 g/dL (32.4-35.8); MEAN PLATELET VOLUME 7.4 fL (7.4-10.4); MONOCYTES % (AUTO) 8 % (2-9); NEUTROPHILS % (AUTO) 55 % (42-75); PLATELET COUNT 203 x10^3/uL (130-400); RED BLOOD COUNT 4.75 x10^6/uL (3.82-5.3); RED CELL DISTRIBUTION WIDTH 14.1 % (9.6-15.2)
[2021-04-05 22:14] LABS: ALBUMIN 3.8 g/dL (3.4-5.0); ANION GAP 12 mmol/L (5-15); CALCIUM 9.1 mg/dL (8.5-10.1); CHLORIDE 100 mmol/L (98-107); SALICYLATE LEVEL 4.3 mg/dL (2.8-20.0)
[2021-04-05 22:17] LABS: ALANINE AMINOTRANSFERASE 17 U/L (12-78); ALKALINE PHOSPHATASE 104 U/L (45-117); BILIRUBIN,TOTAL 0.4 mg/dL (0.2-1.0); CREATININE 0.61 mg/dL (0.55-1.02)
[2021-04-05] MEDS ORDERED: THIAMINE 100MG TABLET ONE (23:08)
[2021-04-06] MEDS ORDERED: POTASSIUM CHLORIDE 20 MEQ TAB.ER.PRT PO ONE (01:00)
[2021-04-06] MEDS ORDERED: POTASSIUM CHLORIDE 20 MEQ PACKET PO STA (01:03)
[2021-04-06] MEDS ORDERED: POTASSIUM CHLORIDE 20 MEQ PACKET ONE (01:09)
[2021-04-06] MEDS ORDERED: POTASSIUM CHLORIDE 20 MEQ TAB.ER.PRT ONE ×2 (01:14→12:34)
--- NOTE | 2021-04-06 01:29 | NUR ---
PT RESTING COMFORTABLY WITH EYES CLOSED. PT MEDICATED PER EMAR, AMBULATORY WITH STEADY GAIT FROM ROOM TO BATHROOM. URINE SAMPLE PROVIDED, WALKED TO LAB BY THIS RN. NO NEEDS AT THIS TIME. ROOM SECURED, SAFETY PRECAUTIONS IN PLACE AND SITTER IN VIEW.
--- NOTE | 2021-04-06 02:01 | NUR ---
PT SUPINE ON GURNEY RESTING COMFORTABLY WITH EYES CLOSED. PT DENIES ANY NEEDS AT THIS TIME. SAFETY PRECAUTIONS IN PLACE, SAFETY VILLALOBOS DOWN AND SITTER IN VIEW.
[2021-04-06 02:05] LABS: AMPHETAMINE SCREEN, URINE Negative (Negative); BARBITURATE SCREEN, URINE Negative (Negative); BENZODIAZEPINE SCREEN, URINE Negative (Negative); CANNABINOID SCREEN, URINE Negative (Negative); COCAINE SCREEN, URINE Negative (Negative); METHADONE SCREEN, URINE Negative (Negative); OPIATE SCREEN, URINE Negative (Negative)
[2021-04-06] MEDS ORDERED: LORazepam 1MG TABLET ONE (06:08)
[2021-04-06] MEDS ORDERED: ONDANSETRON ODT 4 MG ONE (06:08)
[2021-04-06] MEDS ORDERED: ONDANSETRON ODT 4 MG PO ONE (06:30)
[2021-04-06] MEDS ORDERED: LORazepam 1MG TABLET PO ONE (06:30)
--- NOTE | 2021-04-06 07:04 | NUR ---
BEDSIDE REPORT GIVEN TO HEATHER RIVERO
--- NOTE | 2021-04-06 07:13 | NUR ---
ASSUMING CARE OF PT AFTER BEDSIDE REPORT. PT ASLEEP WITH EVEN AND UNLABORED RESPIRATIONS. VSS. HUNG.
[2021-04-06 07:15] VITALS: BP 115/82
--- NOTE | 2021-04-06 07:16 | NUR ---
SAFETY PRECAUTIONS IN PLACED. SITTER AT BEDSIDE.
--- NOTE | 2021-04-06 09:00 | NUR ---
PT GIVEN BREAKFAST TRAY. SAT UP AND ATE FOOD. NADN. SAFETY PRECAUTIONS IN PLACE. SITTER AT BEDSIDE.
--- NOTE | 2021-04-06 10:13 | NUR ---
PT ASLEEP WITH EVEN AND UNLABORED RESPIRATIONS. NADN. SAFETY PRECAUTIONS IN PLACE.
--- NOTE | 2021-04-06 11:23 | NUR ---
PT ASLEEP WITH EVEN AND UNLABORED RESPIRATIONS. NADN. SAFETY PRECAUTIONS IN PLACE.
--- NOTE | 2021-04-06 12:11 | NUR ---
PT PROVIDED WITH LUNCH TRAY.
--- NOTE | 2021-04-06 12:11 | NUR ---
SITTER AT BEDSIDE. SAFETY PRECAUTIONS IN PLACE.
--- NOTE | 2021-04-06 12:37 | NUR ---
PT MEDICATED PER EMAR. VSS. NADN. SAFETY PRECAUTIONS IN PLACE. SITTER AT BEDSIDE.
[2021-04-06] MEDS ORDERED: POTASSIUM CHLORIDE 20 MEQ TAB.ER.PRT PO SCH (13:00)
--- NOTE | 2021-04-06 14:04 | NUR ---
PT TO GO TO [facility] [place]. TAXI VOUCHER PROVIDED
== END 2021-04-06 14:44 | disposition home or self-care (01) ==
LOC: ED 21:36 → EDIP 04-06 01:50
PROVIDERS: ADMIT Emergency Medicine; ATTEND Emergency Medicine
DX: F10.220 Alcohol dependence with intoxication, uncomplicated (principal); E87.6 Hypokalemia; F41.8 Other specified anxiety disorders; I10 Essential (primary) hypertension; E11.9 Type 2 diabetes mellitus without complications; R45.851 Suicidal ideations; F17.200 Nicotine dependence, unspecified, uncomplicated
CPT/HCPCS: 36415; 80053; 80299; 80307; 80320; 80329; 85025; 99284; G0378; Q0162; G0480